=== PATIENT | female | born 1970 | race Caucasian/White ===

== ENCOUNTER 2019-03-24 09:15 | Emergency (ER) | payer MEDICAID ==
[~2019-03-24] VITALS: Ht 160 cm; Wt 86.1 kg
[2019-03-24 09:19] VITALS: BP 163/121
--- NOTE | 2019-03-24 09:33 | NUR ---
PAPER SPOOLER: PT TO ROOM FROM LOBBY, AMBULATORY
--- NOTE | 2019-03-24 10:00 | NUR ---
THIS IS A 48 YO F WHO IS REQUESTING TO BE SCREENED FOR STDS. SHE STATES THAT SHE HAS HAD MULTIPLE PARTNERS AND ONE HAS CONFIRMED BEING STD POSTIVE. PATIENT IS IN NO ACUTE DISTRESS. RESPIRATIONS ARE EVEN AND UNLABORED. PATIENT IS SITTING ON GURNEY WITH 2L OF SODA. DENIES FURTHER NEEDS AT THIS TIME.
[2019-03-24] MEDS ORDERED: CEFTRIAXONE 1,000 MG IM ONE (10:30)
[2019-03-24] MEDS ORDERED: AZITHROMYCIN 500 MG TABLET PO ONE (10:30)
--- NOTE | 2019-03-24 10:34 | NUR ---
PATIENT MOVED TO [facility] FOR PELVIC EXAM.
[2019-03-24] MEDS ORDERED: CEFTRIAXONE 1,000 MG ONE (10:55)
[2019-03-24] MEDS ORDERED: AZITHROMYCIN 250 MG TABLET ONE (10:55)
[2019-03-24] MEDS ORDERED: LIDOCAINE-MPF 1%, 5ML ONE (10:56)
[2019-03-24] MEDS ORDERED: CEFTRIAXONE 250 MG ONE (10:57)
--- NOTE | 2019-03-24 11:03 | NUR ---
PATIENT MEDICATED PER EMAR
[2019-03-24 12:13] LABS: CULTURE INDICATED? YES; MICROSCOPIC INDICATED
--- NOTE | 2019-03-24 13:03 | NUR ---
Patient given discharge instructions and they have confirmed that they understand the instructions. Patient ambulatory with steady gait.
--- NOTE | 2019-03-24 13:12 | NUR ---
PATIENT TALKING TO REGISTRATION.
== END 2019-03-24 13:05 | disposition home or self-care (01) ==
LOC: ED 11:25
DX: N30.00 Acute cystitis without hematuria (principal); A54.9 Gonococcal infection, unspecified; A74.9 Chlamydial infection, unspecified
CPT/HCPCS: 36415; 81001; 81025; 86592; 87086; 87389; 87491; 87591; 96372; 99283; J0696

== ENCOUNTER 2019-03-27 13:27 | Emergency (ER) | payer MEDICAID ==
[~2019-03-27] VITALS: Ht 167.6 cm; Wt 78.0 kg
--- NOTE | 2019-03-27 13:56 | NUR ---
[id number] @[id number]
[2019-03-27 14:06] VITALS: BP 119/87
--- NOTE | 2019-03-27 15:50 | NUR ---
LEASE ATTENDANT: CALLED FOR ROOM, NO ANSWER
--- NOTE | 2019-03-27 16:15 | NUR ---
CALLED FOR ROOM, NO ANSWER
--- NOTE | 2019-03-27 16:53 | NUR ---
BIOLOGICAL INSPECTOR: CALLED FOR ROOM, NO ANSWER
== END 2019-03-27 16:55 | disposition left against medical advice (07) ==
LOC: ED 16:49
DX: N34.2 Other urethritis (principal)
CPT/HCPCS: 99281

== ENCOUNTER 2019-04-05 10:40 | Emergency (ER) | payer MEDICAID ==
[~2019-04-05] VITALS: Ht 160 cm; Wt 86.0 kg
[2019-04-05 10:52] VITALS: BP 108/68
--- NOTE | 2019-04-05 11:09 | NUR ---
PT IN ROOM AT THIS TIME. REFUSING TO ANSWER ALL CLINICAL AND ASSESSMENT QUESTIONS. PT STATES " I DON'T HAVE TO ANSWER THAT, IT SHOULD BE ON FILE." MD IN ROOM TO EVAL AT THIS TIME.
[2019-04-05] MEDS ORDERED: CEFTRIAXONE 250 MG ONE (11:26)
[2019-04-05] MEDS ORDERED: AZITHROMYCIN 500 MG TABLET ONE (11:26)
[2019-04-05] MEDS ORDERED: AZITHROMYCIN 500 MG TABLET PO ONE (11:30)
[2019-04-05] MEDS ORDERED: CEFTRIAXONE 250 MG IM ONE (11:30)
== END 2019-04-05 11:50 | disposition home or self-care (01) ==
LOC: ED 11:34
DX: A56.01 Chlamydial cystitis and urethritis (principal); A54.01 Gonococcal cystitis and urethritis, unspecified; N30.00 Acute cystitis without hematuria; K21.9 Gastro-esophageal reflux disease without esophagitis; I10 Essential (primary) hypertension; J45.909 Unspecified asthma, uncomplicated; Z72.9 Problem related to lifestyle, unspecified; Z87.01 Personal history of pneumonia (recurrent); Z86.19 Personal history of other infectious and parasitic diseases
CPT/HCPCS: 96372; 99283; J0696

== ENCOUNTER 2019-09-24 04:40 | Emergency (ER) | payer MEDICAID ==
[~2019-09-24] VITALS: Ht 162.6 cm; Wt 71.6 kg
--- NOTE | 2019-09-24 04:51 | NUR ---
pt ambulated back to room with a smooth and steady gait, pt changed into gown, resting on gurney, given warm blanket for comfort, sitter requested. pt is homeless, pt is crying and upset. 04/22 bags placed in locker.
--- NOTE | 2019-09-24 04:51 | NUR ---
ATTEMPTED TO PERFORM CLINICAL SCREEN IN TRIAGE. PT UNCOOPERATIVE WITH LIFESTYLE QUESTIONS AT THIS TIME.
--- NOTE | 2019-09-24 05:32 | NUR ---
pt ambulated to and from restroom with a smooth and steady gait, urine sample collected, pt back to [facility] for pelvic exam with RN at . Labs collected and UA walked to lab, pt now resting with eyes closed in [facility], given water for comfort, denies additional needs at this time. NAD, RESP WNL, skin color WNL warm and dry. WCTM.
--- NOTE | 2019-09-24 05:35 | NUR ---
ED SI DIET tray ordered.
[2019-09-24 05:45] LABS: WET PREP WBCS MODERATE (FEW)
[2019-09-24 05:46] LABS: CLUE CELLS NONE SEEN (NONE SEEN)
[2019-09-24 06:05] LABS: MICROSCOPIC INDICATED
[2019-09-24] MEDS ORDERED: metroNIDAZOLE 500 MG TABLET ONE (06:25)
--- NOTE | 2019-09-24 06:28 | NUR ---
pt resting in gurney, NAD, RESP WNL, skin color WNL warm and dry, given crackers and cereal and medicated per MAR. call light on lap, Denies additional needs at this time. WCTM.
[2019-09-24 06:30] VITALS: BP 135/83
[2019-09-24] MEDS ORDERED: metroNIDAZOLE 500 MG TABLET PO ONE (06:30)
--- NOTE | 2019-09-24 06:57 | NUR ---
Patient given discharge instructions and they have confirmed that they understand the instructions. Patient ambulatory with steady gait. PT GIVEN SCRIPT, TAXI VOUCHER, AND DENIES ANY CURRENT SI. NAD, RESP WNL, P/W/D.
--- NOTE | 2019-09-24 07:20 | NUR ---
PT DENIES SI/HI. PT PROVIDED W/ TAXI VOUCHER BY AYLEEN BRANCH. PT PROVIDED W/ SHOES AND WALKED W/ STEADY GAIT TO DISCHARGE DESK. TAXI VOUCHER IN HAND.
== END 2019-09-24 07:22 | disposition home or self-care (01) ==
LOC: ED 06:50
DX: A59.01 Trichomonal vulvovaginitis (principal); K21.9 Gastro-esophageal reflux disease without esophagitis; I10 Essential (primary) hypertension; J45.909 Unspecified asthma, uncomplicated
CPT/HCPCS: 81001; 87086; 87210; 87491; 87591; 87808; 99284

== ENCOUNTER 2019-10-13 05:04 | Emergency (ER) | payer MEDICAID ==
[~2019-10-13] VITALS: Ht 160 cm; Wt 70.0 kg
[2019-10-13 05:09] VITALS: BP 165/112
--- NOTE | 2019-10-13 05:27 | NUR ---
PT TO ED WITH MULTIPLE COMPLAINTS. PT REPORTS "THE WATER THAT I AM DRINKING DOESN'T TASTE PROPER TO ME. ITS BOTTLED WATER BUT I DON'T KNOW IF IT WAS PROPERLY SEALED OR NOT". REPORTS WATER IS MAKING HER NAUSEATED AND HAVE A FUNNY TASTE IN HER MOUTH. PT ALSO REQUESTING TO SPEAK TO SOCIAL WORK. PT REPORTS "I NEED SOME HELP WITH MY MEDICATION REGIME AND SOME COURT THINGS THAT I NEED".
[2019-10-13] MEDS ORDERED: LORazepam 1MG TABLET PO ONE (06:00)
[2019-10-13] MEDS ORDERED: LORazepam 1MG TABLET ONE (06:07)
[2019-10-13 06:15] LABS: BASOPHILS # (AUTO) 0.04 x10^3/uL (0-0.1); BASOPHILS % (AUTO) 1 % (0-1); EOSINOPHILS # (AUTO) 0.01 x10^3/uL (0-0.4); EOSINOPHILS % (AUTO) 0 % (1-7); LYMPHOCYTES # (AUTO) 1.41 x10^3/uL (1-3.4); LYMPHOCYTES % (AUTO) 17 % (22-44); MD NO; MEAN CORPUSCULAR HEMOGLOBIN 30.7 pg (27.0-34.8); MEAN CORPUSCULAR VOLUME 92.9 fL (80-100); MEAN PLATELET VOLUME 8.2 fL (7.4-10.4); MONOCYTES # (AUTO) 0.82 x10^3/uL (0.2-0.8); MONOCYTES % (AUTO) 10 % (2-9); NEUTROPHILS # (AUTO) 6.12 x10^3/uL (1.8-6.8); NEUTROPHILS % (AUTO) 73 % (42-75); PLATELET COUNT 246 x10^3/uL (130-400); RED BLOOD COUNT 4.74 x10^6/uL (3.82-5.3); RED CELL DISTRIBUTION WIDTH 16.7 % (9.6-15.2)
--- NOTE | 2019-10-13 06:15 | NUR ---
PT REFUSING ATIVAN AT THIS TIME. PT REPORTS "I DON'T WANT TO BE DRUGGED UP. I NEED TO HAVE A CLEAR MIND". ATTEMPTING URINE SAMPLE AT THIS TIME.
[2019-10-13 06:28] LABS: ALANINE AMINOTRANSFERASE 23 U/L (12-78); ANION GAP 7 mmol/L (5-15); CALCIUM 9.5 mg/dL (8.5-10.1); CHLORIDE 110 mmol/L (98-107); CREATININE 0.85 mg/dL (0.55-1.02); SALICYLATE LEVEL 2.1 mg/dL (2.8-20.0)
[2019-10-13 06:30] LABS: ALKALINE PHOSPHATASE 102 U/L (45-117); BILIRUBIN,TOTAL 0.8 mg/dL (0.2-1.0)
--- NOTE | 2019-10-13 06:35 | NUR ---
PT VERY CONCERNED ABOUT WHAT WE ARE TESTING HER URINE FOR. PT STATES "IF THERE WAS SOMETHING IN THE WATER LIKE ANTHRAX OR BACTERIA, CAN'T YOU SEE THAT IN MY URINE". PT VERY PARANOID ABOUT SOMETHING BEING IN THE WATER THAT SHE DRANK AND IS REQUESTING THAT WATER OR URINE BE TESTED FOR EVERYTHING.
--- NOTE | 2019-10-13 06:51 | NUR ---
AMALIA RN: TELEPSYCH PAGED.
--- NOTE | 2019-10-13 06:59 | NUR ---
REPORTS GIVEN TO STEPHENIE BRANCH
[2019-10-13 07:07] LABS: AMPHETAMINE SCREEN, URINE Positive (Negative); BARBITURATE SCREEN, URINE Negative (Negative); BENZODIAZEPINE SCREEN, URINE Negative (Negative); CANNABINOID SCREEN, URINE Positive (Negative); COCAINE SCREEN, URINE Negative (Negative); METHADONE SCREEN, URINE Negative (Negative); OPIATE SCREEN, URINE Negative (Negative)
--- NOTE | 2019-10-13 07:14 | NUR ---
RECEIVED REPORT FROM AYLEEN SUMMERS RN. PT RESTING ON [facility].
--- NOTE | 2019-10-13 07:57 | NUR ---
PT MOVED TO ROOM 2 FOR CLOSER MONITORING.
--- NOTE | 2019-10-13 08:14 | NUR ---
PT HAD PSYCH CONSULT AND PER ZITA WARNER OKAY TO DC. PT REFUSING TO LEAVE. SECURITY CALLED FOR ASSISTANCE.
== END 2019-10-13 08:22 | disposition home or self-care (01) ==
LOC: ED 06:40
DX: F15.950 Other stimulant use, unspecified with stimulant-induced psychotic disorder with delusions (principal); I10 Essential (primary) hypertension; Z72.9 Problem related to lifestyle, unspecified
CPT/HCPCS: 36415; 80053; 80307; 85025; 99283

== ENCOUNTER 2020-01-25 06:42 | Emergency (ER) | payer MEDICAID ==
[~2020-01-25] VITALS: Ht 160 cm; Wt 66.3 kg
[2020-01-25 06:46] VITALS: BP 128/93
--- NOTE | 2020-01-25 07:04 | NUR ---
NIKKID called to come take report from patient.
--- NOTE | 2020-01-25 08:26 | NUR ---
STILL AWAITING [employer] TO ARRIVE TO TAKE REPRT FROM PT. PT RESTING CALMLY IN BED WITH EYES CLOSED AT THIS TIME. WILL CONTINUE TO MONITOR.
--- NOTE | 2020-01-25 09:10 | NUR ---
Call from Sergeant Benites from [facility] who states they are very busy at this moment, but will try to get an officer to the ED talha to take a statement from patient.
--- NOTE | 2020-01-25 09:47 | NUR ---
TEVIN HERE TO SPEAK WITH PT.
== END 2020-01-25 10:30 | disposition home or self-care (01) ==
LOC: ED 07:05
DX: Z04.41 Encounter for examination and observation following alleged adult rape (principal); K21.9 Gastro-esophageal reflux disease without esophagitis; I10 Essential (primary) hypertension; J45.909 Unspecified asthma, uncomplicated; Z90.89 Acquired absence of other organs; Z59.0 Homelessness
CPT/HCPCS: 99283

== ENCOUNTER 2020-03-28 05:14 | Emergency (ER) | payer MEDICAID ==
[~2020-03-28] VITALS: Ht 157.5 cm; Wt 66.9 kg
[2020-03-28 05:17] VITALS: BP 131/96
--- NOTE | 2020-03-28 05:40 | NUR ---
URINE SENT TO LAB
[2020-03-28 06:03] LABS: MICROSCOPIC INDICATED
[2020-03-28 06:47] LABS: HCG UR SG 1.036 (1.003-1.030)
[2020-03-28 07:54] LABS: CLUE CELLS PRESENT (NONE SEEN); WET PREP WBCS FEW (FEW)
[2020-03-28] MEDS ORDERED: CEFTRIAXONE 250 MG IM ONE (09:00)
[2020-03-28] MEDS ORDERED: AZITHROMYCIN 500 MG TABLET PO ONE (09:00)
== END 2020-03-28 09:00 | disposition home or self-care (01) ==
LOC: ED 07:22
DX: N39.0 Urinary tract infection, site not specified (principal); N76.0 Acute vaginitis; B86 Scabies; K21.9 Gastro-esophageal reflux disease without esophagitis; J45.909 Unspecified asthma, uncomplicated; I10 Essential (primary) hypertension; Z90.89 Acquired absence of other organs
CPT/HCPCS: 81001; 81025; 87077; 87086; 87210; 87491; 87591; 87808; 96372; 99283; J0696; 87186

== ENCOUNTER 2020-11-02 23:54 | Emergency (ER) | payer MEDICAID ==
[~2020-11-02] VITALS: Ht 167.6 cm; Wt 64.0 kg
[2020-11-03 00:36] LABS: BASOPHILS % (AUTO) 0 % (0-1); EOSINOPHILS % (AUTO) 1 % (1-7); LYMPHOCYTES % (AUTO) 15 % (22-44); MEAN CORPUSCULAR HEMOGLOBIN 32.6 pg (27.0-34.8); MEAN CORPUSCULAR HGB CONC 33.7 g/dL (32.4-35.8); MONOCYTES % (AUTO) 9 % (2-9); NEUTROPHILS % (AUTO) 74 % (42-75); PLATELET COUNT 241 x10^3/uL (130-400); RED CELL DISTRIBUTION WIDTH 14.1 % (9.6-15.2)
[2020-11-03 00:49] LABS: ALBUMIN 3.7 g/dL (3.4-5.0); ANION GAP 5 mmol/L (5-15); CALCIUM 9.2 mg/dL (8.5-10.1); CHLORIDE 108 mmol/L (98-107); CREATININE 0.69 mg/dL (0.55-1.02)
--- NOTE | 2020-11-03 02:02 | NUR ---
PT PRESENTS TO THE ED WITH BURING URINATION AND HER VAGINA LYNN WELL. PT WANTS TO BE CHECKED FOR AN STD. PT ON GURNEY, AND IN GOWN. PEVLIC EXAM SUPPLIES AT BEDSIDE, AND PT ON [employer] BED.
[2020-11-03] MEDS ORDERED: POTASSIUM CHLORIDE 20 MEQ TAB.ER.PRT ONE (02:17)
[2020-11-03 02:20] LABS: MICROSCOPIC INDICATED
--- NOTE | 2020-11-03 02:24 | NUR ---
BREAK RN: PT. MEDICATED PER MAR. PELVIC EXAM SET-UP READY. PT. PROVIDED WITH AND EXTRA WARM BLANKET PER REQUEST. STATES "I AM COLD BECAUSE I GOT KICKED OUT OF THE [facility] AND I REALLY JUST WANT SOMEWHERE TO WARM UP AND SLEEP FOR A BIT".
[2020-11-03] MEDS ORDERED: POTASSIUM CHLORIDE 20 MEQ TAB.ER.PRT PO ONE (02:30)
[2020-11-03 02:33] VITALS: BP 112/62
[2020-11-03] MEDS ORDERED: IBUPROFEN 600 MG TABLET ONE (02:36)
[2020-11-03 02:39] LABS: CLUE CELLS NONE SEEN (NONE SEEN); WET PREP WBCS FEW (FEW)
[2020-11-03] MEDS ORDERED: DOXYCYCLINE 100MG TABLET PO ONE (03:00)
[2020-11-03] MEDS ORDERED: IBUPROFEN 200 MG TABLET PO ONE (03:00)
[2020-11-03] MEDS ORDERED: CEFTRIAXONE 1,000 MG IM ONE (03:00)
[2020-11-03] MEDS ORDERED: DOXYCYCLINE 100MG TABLET ONE (03:14)
[2020-11-03] MEDS ORDERED: CEFTRIAXONE 1,000 MG ONE (03:14)
--- NOTE | 2020-11-03 03:20 | NUR ---
Patient given discharge instructions and they have confirmed that they understand the instructions. Patient ambulatory with steady gait.
== END 2020-11-03 03:30 | disposition home or self-care (01) ==
LOC: ED 23:54
DX: R30.0 Dysuria (principal); N72 Inflammatory disease of cervix uteri; F17.210 Nicotine dependence, cigarettes, uncomplicated; F15.10 Other stimulant abuse, uncomplicated; Z72.9 Problem related to lifestyle, unspecified; K21.9 Gastro-esophageal reflux disease without esophagitis; J45.909 Unspecified asthma, uncomplicated; I10 Essential (primary) hypertension; Z90.89 Acquired absence of other organs
CPT/HCPCS: 36415; 80048; 81001; 82040; 84703; 85025; 87086; 87210; 87491; 87591; 87808; 96372; 99284; 99406; J0696